=== PATIENT | female | born 1990 | race Native Hawaiian/Other Pacific Islander ===

== ENCOUNTER 2017-11-23 07:43 | Day surgery (SDC) | payer BC ==
[2017-11-23] MEDS ORDERED: Midazolam 2 MG/2 ML VIAL ONE (09:06)
[2017-11-23] MEDS ORDERED: cefOXitin IV 1 gm in Dextrose 0 GM/0 ML BAG IVPB ONE (09:06)
[2017-11-23] MEDS ORDERED: Propofol 10 mg/ml Inj (20 ML) ONE (09:07)
[2017-11-23] MEDS ORDERED: Oxytocin 10 Units/ml Inj ONE (09:07)
[2017-11-23] MEDS ORDERED: Lactated Ringer's 1,000 ML IV ONE ×2 (09:10→10:06)
--- NOTE | 2017-11-23 10:03 | PCM.SURG1 ---
Surgeon's Initial Post Op Note - Surgeon's Notes Surgeon: DR BROWNING Fireman: NONE Type of Anesthesia: General LMA Anesthesia Administered By: DR BARAJAS Pre-Operative Diagnosis: 27 yr at 7wek missed ab Operative Findings: uterus was very antflexed.was difficult to o the case so ultrasound was bring from l&d and case was don in sono .pt was observed for 6 hrs. repeat cbc/cmp Post-Operative Diagnosis: same with antrflexed uterus Operation Performed: ultrasounded guidance for suction d&c Specimen/Specimens Removed: poc Estimated Blood Loss: EBL {In ML}: 100 Blood Products Given: N/A Drains Used: No Drains Post-Op Condition: Good Date of Surgery/Procedure: 11/23/17 Time of Surgery/Procedure: 10:00
[2017-11-23 10:41] LABS: BASO % 0.3 % (0.0-2.0); EOS # 0.1 K/uL (0.0-0.7); EOS % 1.6 % (0.0-4.0); HEMATOCRIT 37.6 % (34.0-47.0); LYMPH # 2.1 K/uL (1.0-4.3); LYMPH % 28.3 % (20.0-40.0); MEAN CELL VOLUME 87.5 fL (81.0-99.0); MEAN CORPUSCULAR HEMOGLOBIN 29.6 pg (27.0-31.0); MEAN CORPUSCULAR HGB CONC 33.8 g/dL (33.0-37.0); MONO # 0.5 K/uL (0.0-0.8); MONO % 6.6 % (0.0-10.0); NRBC % 0.1 % (0.0-2.0); RED CELL DISTRIBUTION WIDTH 13.1 % (11.5-14.5); WHITE BLOOD COUNT 7.6 K/uL (4.8-10.8)
[2017-11-23 10:58] LABS: ALB/GLOB RATIO 1.2 (1.0-2.1); ALKALINE PHOSPHATASE 55 U/L (38-126); ALT/SGPT 23 U/L (9-52); AST/SGOT 27 U/L (14-36); BILIRUBIN,TOTAL 0.4 mg/dL (0.2-1.3); BLOOD UREA NITROGEN 5 mg/dL (7-17); CALCIUM 8.6 mg/dl (8.6-10.4); CARBON DIOXIDE 23 mmol/L (22-30); CHLORIDE 101 mmol/L (98-107); GFR AFRICAN-AMERICAN > 60; GLUCOSE,RANDOM 83 mg/dL (65-105); POTASSIUM 3.4 mmol/L (3.6-5.2); SODIUM 135 mmol/L (132-148); TOTAL PROTEIN 7.5 g/dL (6.3-8.3)
[2017-11-23 12:28] VITALS: BP 90/60; PULSE 72; RESP 18; TEMP 98; O2SAT 100
--- NOTE | 2017-11-24 00:17 | OP ---
PROCEDURE DATE: 11/23/2017 PREOPERATIVE DIAGNOSIS: A 27-year-old 2, para 1 at 7 weeks missed . POSTOPERATIVE DIAGNOSES: A 27-year-old 2, para 1 at 7 weeks missed , very anteflexed uterus, difficult to dilate, and ultrasound was used to do the procedure. SURGEON: Kaz Ziegler MD. HEEL SEAT FLAP STAPLER: None. TYPE OF ANESTHESIA: General. ANESTHESIA ADMINISTERED BY: Chi Albright MD. PROCEDURE: Suction dilation and curettage under ultrasound guidance. DESCRIPTION OF PROCEDURE: After informed consent was obtained, the patient was brought to the operating room, placed on the table, where general anesthesia was given. Once anesthesia was found to be adequate, she was prepped and draped in a normal sterile fashion. Examination of the uterus revealed it to be 7-week size. No pelvic or adnexal mass. Anterior lip of the cervix was grasped with a tenaculum and gentle dilatation of the cervix was done. It was very hard to dilate because the uterus was very anteflexed, so the decision was to get an ultrasound. Ultrasound was done and the dilatation of the cervix was done and then the 6-Icelandic and the 7-Icelandic were used to do the dilatation of the cervix. The products were taken out through the suction. It was done all under ultrasound guidance. The procedure was very difficult, took longer time to do the procedure and dilatation took longer time and then the procedure took a longer time. After that, under ultrasound guidance, it was found that all the products were taken out. because of the laceration. After that, the tenaculum was taken out. The patient was . EBL was 100 mL. The patient tolerated the procedure well. The patient to be observed. Repeat CBC and CMP in the ER. The patient to be observed for 6 hours after the procedure, just to make sure the patient is fine. The patient was explained in detail everything. The patient and understand this. Kaz Ziegler MD
== END 2017-11-23 13:30 | disposition home or self-care (01) ==
LOC: C.SDS 07:43
PROVIDERS: ATTEND Obstetrics & Gynecology
DX: O02.1 Missed abortion (principal); Z3A.01 Less than 8 weeks gestation of pregnancy
CPT/HCPCS: 36415; 59820; 80053; 85025; 88305; J2405; J2704; J3010; J7120